=== PATIENT | female | born 1960 | race Asian ===

== ENCOUNTER 2023-09-02 06:45 | Day surgery (SDC) | payer MEDICAID ==
[2023-09-02] VITALS (10 sets, daily range): BP systolic 114–135; BP diastolic 50–70; PULSE 60–81; RESP 14–16; O2SAT 92–100
[~2023-09-02] VITALS: Ht 152.4 cm; Wt 67.6 kg
[~2023-09-02 06:45] MED LIST: CHOL500033 PO; CLOP75TA28 PO; METO25TA5 PO; SIMV40TA18 PO
[2023-09-02] MEDS ORDERED: IODIXANOL 320MG/ML 100ML BTL IV ONE (07:33)
[2023-09-02] MEDS ORDERED: LIDOCAINE 2%HCL (LOCAL ANESTH.) INJ 20ML MDV ONE (07:33)
[2023-09-02] MEDS ORDERED: HEPARIN SODIUM (PORCINE) 5000 UNITS/ML 1ML VIAL ONE (07:46)
[2023-09-02] MEDS ORDERED: ANGIOMAX 250 MG VIAL IV ONE (07:46)
[2023-09-02] MEDS ORDERED: VERAPAMIL 2.5MG/ML INJ 2ML VIAL IV ONE (07:46)
[2023-09-02] MEDS ORDERED: fentaNYL CITRATE 100 MCG/2 ML VL ONE (07:47)
[2023-09-02] MEDS ORDERED: SODIUM CHL 0.9% 0 ML ONE (07:47)
[2023-09-02] MEDS ORDERED: MIDAZOLAM HCL 2MG/2ML 2ml VIAL (1mg/ml) ONE (07:47)
== END 2023-09-02 11:52 | disposition home or self-care (01) ==
LOC: CATH 06:45
PROVIDERS: ATTEND Internal Medicine Cardiovascular Disease
DX: R94.39 Abnormal result of other cardiovascular function study (principal); E78.5 Hyperlipidemia, unspecified; I10 Essential (primary) hypertension; Z88.8 Allergy status to other drugs, medicaments and biological substances; Z79.899 Other long term (current) drug therapy
CPT/HCPCS: 93458; C1769; C1887; C1894; J1644; J2250; J3010; Q9967; 99152